=== PATIENT | male | born 1985 | race Caucasian/White ===

== ENCOUNTER 2022-10-23 14:21 | Outpatient (CLI) | payer BC | END 2022-10-23 23:59 | disposition home or self-care (01) | LOC: LAB 14:21 | PROVIDERS: ATTEND Internal Medicine Interventional Cardiology | DX: Z11.7 Encounter for testing for latent tuberculosis infection (principal) | CPT/HCPCS: 36415; 86480 ==

== ENCOUNTER 2024-01-11 11:13 | Emergency (ER) | payer BC ==
[~2024-01-11] VITALS: Ht 175.3 cm; Wt 81.8 kg
[2024-01-11 11:14] VITALS: BP 116/84; PULSE 79; RESP 16; TEMP 98; O2SAT 98
== END 2024-01-11 11:30 | disposition home or self-care (01) ==
LOC: ER 11:13
DX: M19.071 Primary osteoarthritis, right ankle and foot (principal); M79.671 Pain in right foot
CPT/HCPCS: 73630; 99283